=== PATIENT | female | born 1985 | race Caucasian/White ===

== ENCOUNTER 2018-11-06 14:43 | Inpatient (IN) | payer MEDICAID, OTHER ==
[~2018-11-06] VITALS: Ht 167.6 cm; Wt 66.5 kg
[~2018-11-06 14:43] MED LIST: ROCURONIUM 50 MG INJ ONE
[2018-11-06] MEDS ORDERED: OPHTHALMIC IRRIG SOLUTION 120 ML RIGHT EYE ONE (15:30)
[2018-11-06] MEDS ORDERED: SOD CHLORIDE 0.9% 1,000 ML IV STA (15:37)
[2018-11-06] MEDS ORDERED: SOD CHLORIDE 0.9% 0 ML IV ONE (16:40)
[2018-11-06] MEDS ORDERED: PREN-93 PO (17:03)
--- NOTE | 2018-11-06 17:51 | ERD ---
ER Documentation Chief Complaint Chief Complaint bib self, referred by planned parent ling for tachycardia, asymptomatic HPI This is a 33-year-old female presents for evaluation of palpitations, and exertional shortness of breath for the last 3 days. 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 She states that she has a history of mild anemia, she denies leg swelling, no hemoptysis. She denies any fever. ROS All systems reviewed and are negative except as per history of present illness. Medications Home Meds Reported Medications Vit No.124/Iron/FA ( Vitamin Tablet) 1 Each Tablet, 1 EACH PO DAILY, TAB 11/06/18 Allergies Allergies: Coded Allergies: No Known Allergy (Unverified , 11/06/18) PMhx/Soc History of Surgery: Yes (Hx 11 yrs ago) Anesthesia Reaction: No Hx Miscellaneous Medical Probl: Yes (Anemia, ) Hx Alcohol Use: No Hx Substance Use: Yes (hx marijuana) Hx Tobacco Use: No Smoking Status: Never smoker Physical Exam Vitals Vital Signs Date Temp Pulse Resp B/P (MAP) Pulse Ox O2 O2 Flow FiO2 Time Delivery Rate 11/06/18 98.3 156 19 130/72 100 14:46 (91) Physical Exam Const: No acute distress Head: Atraumatic Eyes: Normal Conjunctiva ENT: Normal External Ears, Nose and Mouth. Neck: Full range of motion. No meningismus. Resp: Clear to auscultation bilaterally Cardio: Sinus tachycardia with regular rhythm, no murmurs Abd: Soft, non tender, non distended. Normal bowel sounds Skin: No petechiae or rashes Back: No midline or flank tenderness Ext: No cyanosis, or edema Neur: Awake and alert Psych: Normal Mood and Affect Result Diagram: 11/06/18 1610 11/06/18 1611 Results 24 hrs Laboratory Tests Test 11/06/18 16:10 11/06/18 16:11 White Blood Count 14.7 10^3/ul Red Blood Count 1.74 10^6/ul Hemoglobin 5.6 g/dl Hematocrit 17.4 % Mean Corpuscular Volume 100.0 fl Mean Corpuscular Hemoglobin 32.2 pg Mean Corpuscular Hemoglobin Concent 32.2 g/dl Red Cell Distribution Width 15.4 % Platelet Count 320 10^3/UL Mean Platelet Volume 8.9 fl Immature Granulocytes % 1.200 % Neutrophils % % Segmented Neutrophils % (Manual) 70 % Band Neutrophils % (Manual) 1 % Lymphocytes % % Lymphocytes % (Manual) 25 % Monocytes % % Monocytes % (Manual) 4 % Eosinophils % % Basophils % % Nucleated Red Blood Cells % 0.2 /100WBC Immature Granulocytes # 0.180 10^3/ul Neutrophils # 10^3/ul Neutrophils # (Manual) 10.3 10^3/ul Band Neutrophils # 0.1 10^3/ul Lymphocytes (Manual) 3.6 10^3/ul Lymphocytes # 10^3/ul Monocytes # 10^3/ul Monocytes # (Manual) 0.5 10^3/ul Eosinophils # 10^3/ul Basophils # 10^3/ul Nucleated Red Blood Cells # 10^3/ul Pathologist Review (Hematology) YES Platelet Estimate NORMAL Polychromasia 3+ Poikilocytosis 1+ Anisocytosis 1+ Microcytosis 1+ Helmet Cells 1+ Prothrombin Time 13.1 Sec Prothrombin Time Ratio 1.0 INR International Normalized Ratio 0.98 Urine Color STRAW Urine Clarity CLEAR Urine pH 7.0 Urine Specific [place] 1.003 Urine Ketones NEGATIVE mg/dL Urine Nitrite NEGATIVE mg/dL Urine Bilirubin NEGATIVE mg/dL Urine Urobilinogen NEGATIVE mg/dL Urine Leukocyte Esterase NEGATIVE Yin/ul Urine Hemoglobin NEGATIVE mg/dL Urine Glucose NEGATIVE mg/dL Urine Total Protein NEGATIVE mg/dl Sodium Level 139 mmol/L Potassium Level 3.9 mmol/L Chloride Level 100 mmol/L Carbon Dioxide Level 24 mmol/L Anion Gap 15 Blood Urea Nitrogen 7 mg/dl Creatinine 0.46 mg/dl Est Glomerular Filtrat Rate mL/min > 60 mL/min Glucose Level 98 mg/dl Calcium Level 9.9 mg/dl Total Bilirubin 1.0 mg/dl Direct Bilirubin 0.00 mg/dl Indirect Bilirubin 1.0 mg/dl Aspartate Amino Transf (AST/SGOT) 33 IU/L Alanine Aminotransferase (ALT/SGPT) 17 IU/L Alkaline Phosphatase 36 IU/L Troponin I < 0.012 ng/ml B-Type Natriuretic Peptide 368 PG/ML Total Protein 7.6 g/dl Albumin 4.7 g/dl Globulin 2.90 g/dl Albumin/Globulin Ratio 1.62 Thyroid Stimulating Hormone (TSH) 1.060 MIU/L Beta HCG, Quantitative 82951.0 mIU/ml Current Medications Medications Dose Sig/Kenia Start Time Status Last (Trade) Ordered Route PRN Stop Time Admin Dose Reason Admin Irrigating 1 applic ONCE ONCE 11/06/18 DC Solution RIGHT EYE 15:30 (Eye Wash) 11/06/18 15:37 Sodium 1,000 ml @ Q1H STAT 11/06/18 DC 11/06/18 Chloride 1,000 mls/hr IV 15:37 16:21 11/06/18 16:36 Sodium 0 ml @ 0 Q0M ONCE 11/06/18 DC Chloride mls/hr IV 16:40 11/06/18 16:46 Procedures/MDM 33-year-old female presents for tachycardia, as well as exertional shortness of breath. Patient was found to have severe anemia, with hemoglobin of 5.6, she diaz s no evidence of any active bleeding, ultrasound to evaluate for DVT bilaterally were negative, her lab workup was otherwise overall unremarkable. She was consented and will be transfused 2 units, patient will be admitted to medicine team. She remained hemodynamically stable in the ED. EKG: Rate/Rhythm: Sinus tachycardia QRS, ST, T-waves: No changes consistent w/ acute ischemia Impression: No evidence of ischemia or arrhythmia Departure Diagnosis: Primary Impression: Tachycardia Additional Impressions: Weeks of gestation: unspecified Qualified Codes: Z34.90 - Encounter for supervision of normal , unspecified, unspecified trimester Severe anemia Condition: Stable FELTON EDUARDO MD Nov 06, 2018 17:51
--- NOTE | 2018-11-06 18:26 | HP ---
Date/Time of Note Date/Time of Note DATE: 11/06/18 TIME: 18:23 Assessment/Plan VTE Prophylaxis Pharmacological prophylaxis: NA/contraindicated Pharm contraindication: low risk/ambulating Lines/Catheters IV Catheter Type (from Nrs): Saline Lock Assessment/Plan Assessment/Plan 33 yo woman 8 weeks presents with severe anemia #Anemia - Transfuse to Hgb>7 or asymptomatic. - f/u iron panel, ferritin. MCV 100 so likely not iron deficiency. - Also folate, B12. # - On vitamin - beta-hCG within expected limits - Transabdominal/vaginal US done in ED. - Continue outpatient management. DVT: Ambulation GI: None Result Diagram: 11/06/18 1610 11/06/18 1611 Results 24hrs Laboratory Tests Test 11/06/18 16:10 11/06/18 16:11 White Blood Count 14.7 H Red Blood Count 1.74 L Hemoglobin 5.6 *L Hematocrit 17.4 L Mean Corpuscular Volume 100.0 Mean Corpuscular Hemoglobin 32.2 Mean Corpuscular Hemoglobin Concent 32.2 Red Cell Distribution Width 15.4 H Platelet Count 320 Mean Platelet Volume 8.9 Immature Granulocytes % 1.200 H Neutrophils % Segmented Neutrophils % (Manual) 70 Band Neutrophils % (Manual) 1 Lymphocytes % Lymphocytes % (Manual) 25 Monocytes % Monocytes % (Manual) 4 Eosinophils % Basophils % Nucleated Red Blood Cells % 0.2 H Immature Granulocytes # 0.180 H Neutrophils # Neutrophils # (Manual) 10.3 H Band Neutrophils # 0.1 Lymphocytes (Manual) 3.6 H Lymphocytes # Monocytes # Monocytes # (Manual) 0.5 Eosinophils # Basophils # Nucleated Red Blood Cells # Pathologist Review (Hematology) YES Platelet Estimate NORMAL Polychromasia 3+ Poikilocytosis 1+ Anisocytosis 1+ Microcytosis 1+ Helmet Cells 1+ Prothrombin Time 13.1 Prothrombin Time Ratio 1.0 INR International Normalized Ratio 0.98 Urine Color STRAW Urine Clarity CLEAR Urine pH 7.0 Urine Specific [place] 1.003 Urine Ketones NEGATIVE Urine Nitrite NEGATIVE Urine Bilirubin NEGATIVE Urine Urobilinogen NEGATIVE Urine Leukocyte Esterase NEGATIVE Urine Hemoglobin NEGATIVE Urine Glucose NEGATIVE Urine Total Protein NEGATIVE Sodium Level 139 Potassium Level 3.9 Chloride Level 100 Carbon Dioxide Level 24 Anion Gap 15 H Blood Urea Nitrogen 7 Creatinine 0.46 Est Glomerular Filtrat Rate mL/min > 60 Glucose Level 98 Calcium Level 9.9 Total Bilirubin 1.0 Direct Bilirubin 0.00 Indirect Bilirubin 1.0 Aspartate Amino Transf (AST/SGOT) 33 Alanine Aminotransferase (ALT/SGPT) 17 Alkaline Phosphatase 36 L Troponin I < 0.012 B-Type Natriuretic Peptide 368 H Total Protein 7.6 Albumin 4.7 Globulin 2.90 Albumin/Globulin Ratio 1.62 Thyroid Stimulating Hormone (TSH) 1.060 Beta HCG, Quantitative 49264.0 HPI/ROS Admit Date/Time Admit Date/Time Nov 06, 2018 Hx of Present Illness Ms. Obregon is a 33 yo woman referred from [facility] for tachycardia. She found out she was on 10/31. She actually had a brief syncopal episode then which she attributed to being emotional. Since then she's noticed worsening dyspnea on exertion. Otherwise asymptomatic. [facility] went to [facility] today to see an code machine operator but was told her heart rate was very fast and she should go to the ER. She didn't have any palpitations or chest pressure. The patient has been told she is anemic in the past; and been given courses of PO iron. She has never received a blood transfusion. She does not have heavy periods and cannot remember when her last period was. No melena, hematuria, or other source of gross bleeding. In the ED she was tachy to 150s, afebrile, BP 130/72. Hgb was 5.6. CANDY Denies recent fever, chills, night sweats, headache, vision changes, sore throat, cough, dyspnea, chest pain/pressure/palpitations, anorexia, nausea, vomiting, abdominal pain, diarrhea, melena, hematochezia, hematuria. She DID briefly have some urinary tingling and burning but this self resolved. PMH/Family/Social Past Medical History History of anemia Coded Allergies: No Known Allergy (Unverified , 11/06/18) Past Surgical History 11 years ago Family History Significant Family History: other (Mother has HTN and easy bruising.) Social History Alcohol Use: none Smoking Status: Never smoker Drug Use: marijuana (quit 1 week ago) Exam/Review of Systems Vital Signs Vitals Vital Signs Date Temp Pulse Resp B/P (MAP) Pulse Ox O2 O2 Flow FiO2 Time Delivery Rate 11/06/18 98.3 156 19 130/72 100 14:46 (91) Exam Exam Gen: Young woman well appearing no acute distress Eyes: PERRL, EOMI, no icterus HEENT: Clear oropharynx, moist mucous membranes Neck: No lymphadenopathy Card: Regular rate and rhythm, no murmurs Pulm: Clear to auscultation bilaterally. Abd: Soft, nontender, nondistended. Normoactive bowel sounds. No hepatosplenomegaly. Ext: No cyanosis/clubbing/edema Skin: warm dry well perfused. DOROTHEA FLAHERTY MD Nov 06, 2018 18:26
[2018-11-06] MEDS ORDERED: ACETAMINOPHEN 325 MG TAB PO PRN (18:30)
[2018-11-06] MEDS ORDERED: NACL 0.9% 3 ML SYG IV SCH (18:30)
[2018-11-06] MEDS ORDERED: ONDANSETRON 4 MG INJ IV PRN ×2 (18:30→23:00)
--- NOTE | 2018-11-06 22:16 | HP ---
Date/Time of Note Date/Time of Note DATE: 11/06/18 TIME: 22:10 Assessment/Plan VTE Prophylaxis Pharmacological prophylaxis: NA/contraindicated Pharm contraindication: low risk/ambulating Lines/Catheters IV Catheter Type (from Nrsg): Saline Lock Assessment/Plan Assessment/Plan 33 y/o with suspected ruptured ectopic . Spoke to radiologist who confirmed findings of ectopic and hemoperitoneum despite patient having no pain on ttp on exam. Discussed with patient. Given US findings and high bhcg, recommend surgery. R/B/A discussed, questions answered, consent to be obtained. Result Diagram: 11/06/18 1610 11/06/18 1611 Results 24hrs Laboratory Tests Test 11/06/18 16:10 11/06/18 16:11 White Blood Count 14.7 H Red Blood Count 1.74 L Hemoglobin 5.6 *L Hematocrit 17.4 L Mean Corpuscular Volume 100.0 Mean Corpuscular Hemoglobin 32.2 Mean Corpuscular Hemoglobin Concent 32.2 Red Cell Distribution Width 15.4 H Platelet Count 320 Mean Platelet Volume 8.9 Immature Granulocytes % 1.200 H Neutrophils % Segmented Neutrophils % (Manual) 70 Band Neutrophils % (Manual) 1 Lymphocytes % Lymphocytes % (Manual) 25 Monocytes % Monocytes % (Manual) 4 Eosinophils % Basophils % Nucleated Red Blood Cells % 0.2 H Immature Granulocytes # 0.180 H Neutrophils # Neutrophils # (Manual) 10.3 H Band Neutrophils # 0.1 Lymphocytes (Manual) 3.6 H Lymphocytes # Monocytes # Monocytes # (Manual) 0.5 Eosinophils # Basophils # Nucleated Red Blood Cells # Pathologist Review (Hematology) YES Platelet Estimate NORMAL Polychromasia 3+ Poikilocytosis 1+ Anisocytosis 1+ Microcytosis 1+ Helmet Cells 1+ Absolute Reticulocyte Count 0.136 H Percent Reticulocyte Count 10.4 H Vitamin B12 Level 343 Folate > 20.0 H Prothrombin Time 13.1 Prothrombin Time Ratio 1.0 INR International Normalized Ratio 0.98 Urine Color STRAW Urine Clarity CLEAR Urine pH 7.0 Urine Specific [place] 1.003 Urine Ketones NEGATIVE Urine Nitrite NEGATIVE Urine Bilirubin NEGATIVE Urine Urobilinogen NEGATIVE Urine Leukocyte Esterase NEGATIVE Urine Hemoglobin NEGATIVE Urine Glucose NEGATIVE Urine Total Protein NEGATIVE Sodium Level 139 Potassium Level 3.9 Chloride Level 100 Carbon Dioxide Level 24 Anion Gap 15 H Blood Urea Nitrogen 7 Creatinine 0.46 Est Glomerular Filtrat Rate mL/min > 60 Glucose Level 98 Calcium Level 9.9 Iron Level 97 Total Iron Binding Capacity 315 Percent Iron Saturation 31 Ferritin 162.0 H Total Bilirubin 1.0 Direct Bilirubin 0.00 Indirect Bilirubin 1.0 Aspartate Amino Transf (AST/SGOT) 33 Alanine Aminotransferase (ALT/SGPT) 17 Alkaline Phosphatase 36 L Troponin I < 0.012 B-Type Natriuretic Peptide 368 H Total Protein 7.6 Albumin 4.7 Globulin 2.90 Albumin/Globulin Ratio 1.62 Thyroid Stimulating Hormone (TSH) 1.060 Beta HCG, Quantitative 57492.0 HPI/ROS Admit Date/Time Admit Date/Time Nov 06, 2018 Hx of Present Illness 33 y/o with LMP in early September with known sent from OB clinic for tachycardia. Patient reports palpitations. Denies any pelvic pain or vaginal bleeding. She was seen for her first OB appointment today. h/o TAB. ROS Per HPI. Other systems negative. PMH/Family/Social Past Medical History Medical History: no pertinent history Medications Current Medications IV Flush (NS 3 ml) 3 ml PER PROTOCOL IV ; Start 11/06/18 at 18:30 Ondansetron HCl (Zofran Inj) 4 mg Q6H PRN IV NAUSEA/VOMITING; Start 11/06/18 at 18:30 Acetaminophen (Tylenol Tab) 650 mg Q6H PRN PO .PAIN 1-3 OR TEMP; Start 11/06/18 at 18:30 Coded Allergies: No Known Allergy (Unverified , 11/06/18) Past Surgical History TAB Family History Significant Family History: no pertinent family hx, other (Mother has HTN and easy bruising.) Social History Alcohol Use: none Smoking Status: Never smoker Drug Use: none, marijuana (quit 1 week ago) Exam/Review of Systems Vital Signs Vitals Vital Signs Date Temp Pulse Resp B/P (MAP) Pulse Ox O2 O2 Flow FiO2 Time Delivery Rate 11/06/18 99.1 113 16 123/68 100 Room Air 21:30 (86) Exam Exam Gen: NAD, pale-appearing HEENT: NCAT CV: tachycardic Pulm: CTAB Abd: soft, NT Pelvic: normal size uterus, no CMT, no uterine or adnexal ttp Ext: NT FORD CARTER Nov 06, 2018 22:16
--- NOTE | 2018-11-06 22:53 | PREAC ---
Date/Time of Note Date/Time of Note DATE: 11/06/18 TIME: 22:51 Anesthesia Eval and Record Evaluation Time Pre-Procedure Interview DATE: 11/06/18 TIME: 22:51 Age 33 Sex female NPO: 8 hrs Preoperative diagnosis ectopic preg Planned procedure laproscopic removal of ectopic Past Medical History Past Medical History: Includes Recreational drugs: Marijuana Surgery & Anesthesia Issues No known issue Meds Anticoagulation: No Beta Haydee within 24 hr: No Reason Beta Haydee not given: Pt. not on B-Haydee Reported Medications Vit No.124/Iron/FA ( Vitamin Tablet) 1 Each Tablet, 1 EACH PO DAILY, TAB 11/06/18 Current Medications IV Flush (NS 3 ml) 3 ml PER PROTOCOL IV ; Start 11/06/18 at 18:30 Ondansetron HCl (Zofran Inj) 4 mg Q6H PRN IV NAUSEA/VOMITING; Start 11/06/18 at 18:30 Acetaminophen (Tylenol Tab) 650 mg Q6H PRN PO .PAIN 1-3 OR TEMP; Start 11/06/18 at 18:30 Meds reviewed: Yes Allergies Coded Allergies: No Known Allergy (Unverified , 11/06/18) Allergies Reviewed: Yes Labs/Studies Labs Reviewed: Reviewed by anesthesiologist Result Diagram: 11/06/18 1610 11/06/18 1611 Laboratory Tests 11/06/18 16:10 11/06/18 16:11 Blood Bank Test 11/06/18 17:14 Antibody Screen NEGATIVE Blood Product Summary Counts Blood Type A POSITIVE Crossmatch Red Blood Cells test: Positive Studies: ECG Pre-procedure Exam Last vitals Vital Signs Date Temp Pulse Resp B/P (MAP) Pulse Ox O2 O2 Flow FiO2 Time Delivery Rate 11/06/18 99.1 113 16 123/68 100 Room Air 21:30 (86) Airway: Adequate mouth opening Mallampati: Mallampati II Teeth: Normal Lung: Normal Heart: Normal ASA Physical Status ASA physical status: 2 Emergency: E Planned Anesthetic General/MAC: ETT Pre-operative Attestations Prior to commencing anesthesia and surgery, the patient was re-evaluated, there was verification of: *The patient's identity *The results of appropriate recent lab work and preoperative vital signs *The above evaluation not changing prior to induction *Anesthetic plan, risk benefits, alternative and complications discussed with patient/family; questions answered; patient/family understands, accepts and wishes to proceed. BRIT THOMAS MD Nov 06, 2018 22:53
[2018-11-06] MEDS ORDERED: HYDROmorphONE 2 MG/ML SYG ONE (22:58)
[2018-11-06] MEDS ORDERED: ETOMIDATE 20 MG INJ ONE (22:58)
[2018-11-06] MEDS ORDERED: ALBUMIN HUMAN 5% 250 ML IV PRN (23:00)
[2018-11-06] MEDS ORDERED: hydrALAzine 20 MG INJ IV PRN (23:00)
[2018-11-06] MEDS ORDERED: HYDROmorphONE 1 MG/5 ML IV SYRINGE IV PRN (23:00)
[2018-11-06] MEDS ORDERED: LABETALOL HCL 20MG INJ IV PRN (23:00)
[2018-11-06] MEDS ORDERED: MEPERIDINE 25 MG INJ IV PRN (23:00)
[2018-11-06] MEDS ORDERED: EPHEDrine SULFATE 50 MG/5 ML SYG IV PRN (23:00)
[2018-11-06] MEDS ORDERED: KETOROLAC 15 MG INJ IV PRN (23:00)
[2018-11-07] VITALS (23 sets, daily range): BP systolic 102–121; BP diastolic 56–75; PULSE 77–125; RESP 10–20; Ht 167.6 cm; Wt 66.5 kg
[2018-11-07] MEDS ORDERED: ONDANSETRON 4 MG INJ ONE (00:10)
[2018-11-07] MEDS ORDERED: MIDAZOLAM 1 MG/ML 2 ML INJ ONE (00:10)
[2018-11-07] MEDS ORDERED: SUGAMMADEX SODIUM 200 MG/2 ML VIAL IV ONE (00:14)
[2018-11-07] MEDS ORDERED: BUPIVACAINE 0.25% (MPF) 30 ML INJ ONE (00:20)
--- NOTE | 2018-11-07 00:46 | PAC ---
Date/Time of Note Date/Time of Note DATE: 11/07/18 TIME: 00:45 Post-Anesthesia Notes Post-Anesthesia Note Last documented vital signs Vital Signs Date Temp Pulse Resp B/P (MAP) Pulse Ox O2 O2 Flow FiO2 Time Delivery Rate 11/06/18 99.1 113 16 123/68 100 Room Air 21:30 (86) Activity: WNL Respiratory function: WNL Cardiovascular function: WNL Mental status: Baseline Pain reasonably controlled: Yes Hydration appropriate: Yes Nausea/Vomiting absent: Yes BRIT THOMAS MD Nov 07, 2018 00:46
--- NOTE | 2018-11-07 00:52 | OPR ---
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 She was then prepped and draped in dorsal lithotomy position in [facility]. A weighted speculum was placed to visualize the cervix. Cervix was grasped and Hulka manipulator was successfully placed. Attention was then turned to the abdomen. A 4cm pfannensteil skin incision was made and carried down to the fascia. Fascia was incised and incision extended bilaterally. Superior and inferior aspects were dissected off underlying rectus muscles. Muscles were in the midline and the peritoneum was entered sharply. Upon entering, >500mL of blood was immediately suctioned. Ayan retractor was then placed and the bowel packed. Right fallopian tube was noted to have large ectopic that was rupture and actively bleeding. POC was completely removed from the tube and sent to pathology. Attempts were made for hemostasis of the tube but it continued to have bleeding. Therefore, decision was made to remove the right tube. Right tube was clamped, suture ligated x2, and distal tube including fimbria were removed and sent to pathology. Hemostasis was noted at the site. Left tube and both ovaries were noted to be normal. Pelvis was irrigated and cleared of residual blood. All instruments were then removed. Peritoneum and rectus muscles were reapproximated with 3-0 chromic. Fascia was closed with 0-vicryl and skin with 4-0 monocryl. Plain marcaine was injected into incision site and steristrips and bandage was placed. Patient tolerated the procedure. She received 2 units prbcs and 2L crystalloid intraoperatively. FORD CARTER Nov 07, 2018 00:51
[2018-11-07] MEDS ORDERED: HYDROCODONE/APAP (5/325) TAB PO PRN (01:30)
[2018-11-07] MEDS ORDERED: IBUPROFEN 600 MG TAB PO PRN (01:30)
--- NOTE | 2018-11-07 01:31 | NUR ---
PACU NOTES AWAKE AND ALERT, SITE CLEAN AND DRY; DENIES NAUSEA AND SEVERE DISCOMFORT; CALLED AND LEFT A MESSAGE TO HER AMRIT KEARNS PER PATIENT'S REQUEST
--- NOTE | 2018-11-07 05:41 | NUR ---
EOSS Admit from PACU, alert, oriented with mild discomfort on the Right lower side of the abdomen, medicated with [place], with a good relief. Dressing on the mid lower abdomen was CDI. Hobson catheter was inplaced with adequate amount of urine. Patient was oriented to unit and plan of care. Start patient on clear liquid diet tolerated well will advance it to regular diet. All needs attended, call light is within reach.
--- NOTE | 2018-11-07 17:16 | NUR ---
RN NOTE =alert oriented comfortable at this time with s/p Explor lap with lysis adhesion with steri strip intact and dry with no drainage noted =diet tolerated no n/v . f/c d/c and patient able to urinate without difficulty ,. patient ambulated with assist ,. steady gait . =v/s wnl and afebrile no sob noted..
--- NOTE | 2018-11-07 22:03 | QN ---
Documentation Comment POD #1 S/P minilap for a ruptured ectopic with a need for blood transfusions. Pt feeling better. Per tp she had only felt JORDAN and dizziness but did not have any pain at all. Ambulating w/o difficulty. Last pain med was ibuprofen in the AM. T=98.4 BP 110/58 HR 107 Incision is clean, dry and intact. Abdomen is nondistended. WBC 10.4 Hgb 8.7 Plts 210K. P: D/C home in the AM. Will not need any narcotics. Spoke to pt about the need for early labs and US in her next in case of another ectopic as it would be very important to find it early. All questions answered. ZUHAIR FERRO MD Nov 07, 2018 22:03
[2018-11-08 02:45] VITALS: BP 112/55; PULSE 100; RESP 20
--- NOTE | 2018-11-08 04:54 | NUR ---
EOSS Patient alert, oriented no complained of discomfort, Vital sign stable no respiratory distress, Dressing on the lower abdomen was CDi. Patient tolerated regular diet. Ambulating with a steady gait, voiding adequately. Compliant using the IS. All needs attended, call light is within reach.
--- NOTE | 2018-11-08 08:00 | NUR ---
PT RECEIVED IN BED. A,A,OX4. NOT IN ANY ACUTE DISTRESS. DENIES ANY PAIN AT THIS TIME. THE PLAN OF CARE DISCUSSED W/ THE PT, VERBALIZED UNDERSTANDING. CALL LIGHT IN REACH. PT ENCOURAGED TO CALL FOR ASSISTANCE. WILL CONT. MONITORING. WILL CONT. W/ THE PLAN OF CARE.
--- NOTE | 2018-11-08 15:11 | QN ---
"Documentation Comment Per Diem Clerk Note: Patient is seen by the bedside No complaints VS stable Gen NAD Abd soft NT ND Incision is healing well ---?|>Cleared from Per Diem Clerk team to get discharged --->Needs a follow up appointment with her provider ELISA MOLINA M.D. Nov 08, 2018 15:11"
--- NOTE | 2018-11-08 16:16 | PDOCDIS ---
Discharge Instructions DIAGNOSIS Discharge Diagnosis Ectopic CONDITION [id number] Patient Condition: [id number] Fair HOME CARE INSTRUCTIONS: [id number] Diet Instructions: [id number] Regular ACTIVITY: [id number] Activity Restrictions: [id number] Slowly Increase Activity Rest between Activity Avoid heavy lifting No Sexual Activity Do not operate Machinery Do not operate Power Tool Avoid Heavy Housework [id number] Bathing Restrictions: [id number] Shower [id number] Activity Restrictions Comment: [id number] DO NOT SOAK IN BATH TUB DOROTHEA FLAHERTY MD Nov 08, 2018 16:16
--- NOTE | 2018-11-08 16:18 | DS ---
Date/Time of Note Date/Time of Note DATE: 11/08/18 TIME: 16:16 Discharge Summary Admission/Discharge Info Admit Date/Time Nov 06, 2018 at 18:11 Discharge Date/Time Nov 08, 2018 Discharge Diagnosis Ectopic Hx of Present Illness Ms. Obregon is a 33 yo woman referred from [facility] for tachycardia. She found out she was on 10/31. She actually had a brief syncopal episode then which she attributed to being emotional. Since then she's noticed worsening dyspnea on exertion. Otherwise asymptomatic. She went to [facility] today to see an pellet preparation operator but was told her heart rate was very fa st and she should go to the ER. She didn't have any palpitations or chest pressure. The patient has been told she is anemic in the past; and been given courses of PO iron. She has never received a blood transfusion. She does not have heavy periods and cannot remember when her last period was. No melena, hematuria, or other source of gross bleeding. In the ED she was tachy to 150s, afebrile, BP 130/72. Hgb was 5.6. Hospital Course She got a uterine US which showed ectopic . Dr. Powers took her to surgery which revealed ruptured R ectopic . The R fallopian tube was removed. Overall she required 4 units PRBCs. After surgery doing well, not requiring analgesia, tolerating diet, ambulating. Home Meds Reported Medications Vit No.124/Iron/FA ( Vitamin Tablet) 1 Each Tablet, 1 EACH PO DAILY, TAB 11/06/18 Primary Care Provider Care Physician No Primary Time spent on discharge: > 30 minutes Pending Labs Laboratory Tests Test 11/08/18 12:27 White Blood Count 11.9 10^3/ul (4.8-10.8) Red Blood Count 2.97 10^6/ul (4.20-5.40) Hemoglobin 9.1 g/dl (12.0-16.0) Hematocrit 27.6 % (37.0-47.0) Mean Corpuscular Volume 92.9 fl (82.0-101.0) Mean Corpuscular Hemoglobin 30.6 pg (29.0-33.0) Mean Corpuscular Hemoglobin Concent 33.0 g/dl (32.0-37.0) Red Cell Distribution Width 16.5 % (11.5-14.5) Platelet Count 267 10^3/UL (140-415) Mean Platelet Volume 8.5 fl (7.4-10.4) Immature Granulocytes % 0.600 % (0.001-0.429) Neutrophils % 81.3 % (39.0-77.0) Lymphocytes % 9.4 % (15.0-51.0) Monocytes % 7.6 % (0.0-11.0) Eosinophils % 0.8 % (0.0-7.0) Basophils % 0.3 % (0.0-2.0) Nucleated Red Blood Cells % 0.0 /100WBC (0.0-0.0) Immature Granulocytes # 0.070 10^3/ul (0.0-0.031) Neutrophils # 9.7 10^3/ul (1.6-7.5) Lymphocytes # 1.1 10^3/ul (0.8-2.9) Monocytes # 0.9 10^3/ul (0.3-0.9) Eosinophils # 0.1 10^3/ul (0.0-0.5) Basophils # 0.0 10^3/ul (0.0-0.1) Nucleated Red Blood Cells # 0.0 10^3/ul (0.0-0.0) Beta HCG, Quantitative 7937.0 mIU/ml DOROTHEA FLAHERTY MD Nov 08, 2018 16:18
--- NOTE | 2018-11-08 17:05 | NUR ---
PT D/[facility] HOME IN STABLE CONDITION W/ ALL HER BELONGINGS.
== END 2018-11-08 17:00 | disposition home or self-care (01) | DRG 817 ==
LOC: FTE 14:43 → 5EC 18:11 → EDBEDREQ 19:54 → EDBEDREQTM 19:54 → PP2 22:23 → MS1 11-07 02:07
PROVIDERS: ADMIT Internal Medicine; ATTEND Internal Medicine
PROC: 30233N1 Transfusion of Nonautologous Red Blood Cells into Peripheral Vein, Percutaneous Approach (ICD-10-PCS; 2018-11-06)
PROC: 10T20ZZ Resection of Products of Conception, Ectopic, Open Approach (ICD-10-PCS; principal; 2018-11-07)
PROC: 0UB50ZZ Excision of Right Fallopian Tube, Open Approach (ICD-10-PCS; 2018-11-07)
DX: O00.111 Right tubal pregnancy with intrauterine pregnancy (principal); K66.1 Hemoperitoneum; Z3A.00 Weeks of gestation of pregnancy not specified
CPT/HCPCS: 36430; 71045; 76830; 76856; 80053; 80061; 81003; 82607; 82728; 82746; 83036; 83540; 83735; 83880; 84100; 84443; 84484; 84702; 85025; 85045; 85610; 86644; 86850; 86900; 86901; 86920; 87086; 88305; 93005; 93970; J1170; J2175; J2250; J2405; J7030; J7040; P9016; P9045